=== PATIENT | male | born 1940 | race Caucasian/White ===

== ENCOUNTER 2016-12-22 08:21 | Inpatient (IN) | payer OTHER, MEDICARE ==
[~2016-12-22] VITALS: Ht 172.7 cm; Wt 73.7 kg
[~2016-12-22 08:21] MED LIST: ACYCLOVIR400 MG PO; ALEVE220 MG PO; AUGMENTIN875 MG PO; BACTRIM,SEPT1 TABLE1 PO; CALCIUM-MAGNES1 EA10 PO; CEFUROXIME500 MG PO; DOXAZOSIN MESYLA8 MG PO; GLIPIZIDE XL10 MG PO; IVIG INFUSION; LISINOPRIL20 MG PO; OCUVITE TABLET1 EACH PO; PRAVASTATIN SOD20 MG PO; VELCADE1 MG/ML IM; WARFARIN SODIUM5 MG PO; [UNRECOGNIZED DRUG - OTHER]
[2016-12-22 09:25] LABS: HEMATOCRIT 28.3 % (38.0-50.0); MCH 34.6 PG (29.0-34.0); MCHC 34.3 G/DL (30.0-36.0); MCV 101.1 FL (86-99); WHITE BLOOD COUNT 3.8 K/uL (4.1-10.2)
[2016-12-22 09:41] LABS: INTER. NORMALIZED RATIO 1.7; PROTHROMBIN TIME 18.1 (9.2-11.2); PTT 39.2 (25-32)
[2016-12-22 09:43] LABS: CHLORIDE 111 mEq/L (99-109); POTASSIUM 4.4 mEq/L (3.7-5.4); SODIUM 138 mEq/L (136-147)
[2016-12-22 09:45] LABS: TROP-I INTERPRETATION NEGATIVE; TROPONIN-I 0.05 ng/mL (0.0-0.30)
[2016-12-22 09:46] LABS: GLUCOSE 184 mg/dL (70-99)
[2016-12-22 09:47] LABS: ANION GAP 8 MEQ/L (2-14)
[2016-12-22 09:48] LABS: TOTAL BILIRUBIN 0.7 mg/dL (0.0-1.0)
[2016-12-22 09:49] LABS: ALKALINE PHOSPHATASE 53 IU/L (3-129); GFR ESTIMATE (CALCULATED) 39 mL/min/
[2016-12-22 09:51] LABS: UREA NITROGEN (BUN) 46 mg/dL (9-23)
[2016-12-22 10:35] LABS: ATYPICAL LYMPHOCYTE 3.6 %; BAND NEUTROPHILS 9.1 % (0-8.0); EOSINOPHIL ABS CT 0; IMM.PLATELET FRACTION 3.2 (1-7); INSTRUMENT ABS NEUTROPHIL CT 1.5 K/uL; LYMPHOCYTES 6.4 % (15.0-45.0); MEAN PLAT.VOLUME 12.2 uM^3 (9.0-12.4); METAMYELOCYTES 1.8 %; MYELOCYTES 0.9 %; PLAT.SUFFICIENCY DECREASED; SEG.NEUTROPHILS 69.1 % (46.0-76.0); SMUDGE CELLS 5.5
[2016-12-22 10:41] LABS: PLATELET COUNT 45 K/uL (156-360)
[2016-12-22] MEDS ORDERED: WARFARIN SODIUM1 MG PO (12:00)
[2016-12-22] MEDS ORDERED: HUMULIN R100 UNITS/ SC (12:02)
[2016-12-22] MEDS ORDERED: DECADRON4 MG PO (12:03)
[2016-12-22] MEDS ORDERED: KYPROLIS30 MG IV (12:05)
[2016-12-22] MEDS ORDERED: POMALYST4 MG PO (12:07)
[2016-12-22] MEDS ORDERED: VITAMIN D31000 UNI2 PO (12:09)
[2016-12-22 13:42] LABS: ADD MIUA? YES; BILIRUBIN NEGATIVE; BLOOD NEGATIVE; COLOR YELLOW ((YELLOW)); GLUCOSE (STRIP) 50; KETONES NEGATIVE; LEUKOCYTES NEGATIVE; NITRITE NEGATIVE; PROTEIN (STRIP) >=500; SPECIFIC GRAVITY 1.019 (1.000-1.030); UROBILINOGEN 0.2 MG/DL (0.2-1.0)
[2016-12-22 14:04] LABS: UCUL ADDED? NO
[2016-12-22 14:06] LABS: BACTERIA NONE SEEN /HPF; EPITHELIAL CELLS RARE /HPF; MUCUS TRACE /LPF; RED BLOOD CELLS 0-5 /HPF (0-5); WHITE BLOOD CELLS NONE SEEN /HPF (0-5)
[2016-12-22 15:30] VITALS: BP 157/75
[2016-12-22 16:02] LABS: INFLUENZA A VIRAL ANTIGEN NEGATIVE; INFLUENZA B VIRAL ANTIGEN NEGATIVE
[2016-12-22 23:29] VITALS: BP 155/72
[2016-12-23 06:40] LABS: HEMATOCRIT 28.1 % (38.0-50.0); MCH 34.3 PG (29.0-34.0); MCHC 33.5 G/DL (30.0-36.0); MCV 102.6 FL (86-99); RBC DIS.WIDTH-CV 14.2 % (11.8-14.6); RBC DIS.WIDTH-SD 53.4 % (39-53); RED BLOOD COUNT 2.74 M/uL (4.00-5.50); WHITE BLOOD COUNT 3.8 K/uL (4.1-10.2)
[2016-12-23 06:44] LABS: POINT-OF-CARE METER ID UU13113725
[2016-12-23 07:03] LABS: INTER. NORMALIZED RATIO 1.7; PROTHROMBIN TIME 17.4 (9.2-11.2)
[2016-12-23 07:04] VITALS: BP 185/76
[2016-12-23 07:22] LABS: ALKALINE PHOSPHATASE 45 IU/L (3-129); ANION GAP 9 MEQ/L (2-14); CHLORIDE 116 MEQ/L (99-109); GFR ESTIMATE (CALCULATED) > 59 mL/min/; SAMPLE HEMOLYSIS CHECK 0; SAMPLE ICTERIC CHECK 0; SAMPLE LIPEMIA CHECK 0; SODIUM 142 MEQ/L (136-147); TOTAL BILIRUBIN 0.9 MG/DL (0.0-1.0); UREA NITROGEN (BUN) 30 mg/dL (9-23)
[2016-12-23 07:24] LABS: GLUCOSE 114 mg/dL (70-99)
[2016-12-23 09:19] LABS: IMM.PLATELET FRACTION 3.9 (1-7); MEAN PLAT.VOLUME 11.6 uM^3 (9.0-12.4); PLATELET COUNT 36 K/uL (156-360)
[2016-12-23 10:34] LABS: POINT-OF-CARE METER ID UU13113725
[2016-12-23 15:09] VITALS: BP 190/84
[2016-12-23 16:51] LABS: POINT-OF-CARE METER ID UU13113725
[2016-12-23 20:04] VITALS: BP 170/78
[2016-12-24 06:46] LABS: HEMATOCRIT 31.7 % (38.0-50.0); MCH 34.1 PG (29.0-34.0); MCHC 33.4 G/DL (30.0-36.0); MCV 101.9 FL (86-99); RBC DIS.WIDTH-CV 13.7 % (11.8-14.6); RBC DIS.WIDTH-SD 51.9 % (39-53); RED BLOOD COUNT 3.11 M/uL (4.00-5.50); WHITE BLOOD COUNT 3.4 K/uL (4.1-10.2)
[2016-12-24 06:57] LABS: INTER. NORMALIZED RATIO 1.5; PROTHROMBIN TIME 15.7 (9.2-11.2)
[2016-12-24 07:17] LABS: ALKALINE PHOSPHATASE 51 IU/L (3-129); ANION GAP 9 MEQ/L (2-14); CHLORIDE 111 MEQ/L (99-109); GFR ESTIMATE (CALCULATED) > 59 mL/min/; POTASSIUM 4.1 MEQ/L (3.7-5.4); SAMPLE HEMOLYSIS CHECK 0; SAMPLE ICTERIC CHECK 0; SAMPLE LIPEMIA CHECK 0; SODIUM 139 MEQ/L (136-147); UREA NITROGEN (BUN) 25 mg/dL (9-23)
[2016-12-24 07:28] LABS: PLATELET COUNT 35 K/uL (156-360)
[2016-12-24 07:28] LABS: GLUCOSE 222 mg/dL (70-99)
[2016-12-24 07:50] VITALS: BP 212/84
[2016-12-24 09:54] VITALS: BP 190/82
[2016-12-24 11:25] VITALS: BP 162/74
[2016-12-24 16:49] VITALS: BP 158/78
[2016-12-24 16:50] LABS: D-DIMER ELISA 0.43 mg/L FEU (< 0.57)
[2016-12-24 23:41] VITALS: BP 168/75
[2016-12-25 06:40] LABS: INTER. NORMALIZED RATIO 1.5; PROTHROMBIN TIME 15.8 (9.2-11.2)
[2016-12-25 07:36] VITALS: BP 180/78
[2016-12-25 11:45] LABS: POINT-OF-CARE METER ID UU13113725
[2016-12-25 15:46] VITALS: BP 197/82
[2016-12-25 23:12] VITALS: BP 162/84
[2016-12-26] MEDS ORDERED: GLIPIZIDE10 MG PO (06:23)
[2016-12-26] MEDS ORDERED: AMLODIPINE BESYL5 MG PO (06:27)
[2016-12-26 07:02] LABS: INTER. NORMALIZED RATIO 1.5; PROTHROMBIN TIME 15.1 (9.2-11.2)
[2016-12-26 07:37] VITALS: BP 180/76
[2016-12-27 08:24] LABS: POINT-OF-CARE METER ID UU13113725
== END 2016-12-26 11:10 | disposition home or self-care (01) | DRG 864 ==
LOC: EME 08:21 → 5EAST 12:00 → EDOF 12:00 → 5EAST 15:12
PROVIDERS: Emergency Medicine; Internal Medicine; Internal Medicine Hematology & Oncology
DX: R50.9 Fever, unspecified (principal); C90.00 Multiple myeloma not having achieved remission; Y92.002 Bathroom of unspecified non-institutional (private) residence as the place of occurrence of the external cause; T45.1X5A Adverse effect of antineoplastic and immunosuppressive drugs, initial encounter; W19.XXXA Unspecified fall, initial encounter; I10 Essential (primary) hypertension; E11.9 Type 2 diabetes mellitus without complications; E78.5 Hyperlipidemia, unspecified; N28.9 Disorder of kidney and ureter, unspecified; R06.00 Dyspnea, unspecified; R05 Cough; Z86.718 Personal history of other venous thrombosis and embolism; Z79.01 Long term (current) use of anticoagulants; R53.1 Weakness; Y99.9 Unspecified external cause status
CPT/HCPCS: 36415; 70450; 71010; 71020; 78582; 80048; 80053; 81003; 82948; 83605; 84484; 85025; 85027; 85379; 85610; 85730; 87040; 87086; 87502; 93306; 94640; 94640 76; 94799; 99202; 99281; 99285; A9540; A9567; J0696; J1815; J2543; J2930; J7030; J7050; J7120; J7512

== ENCOUNTER → 2017-01-22 | Outpatient (CLI) | payer OTHER, MEDICARE ==
[~2017-01-22] MED LIST changes: +AMLODIPINE BESYL5 MG PO; +DECADRON4 MG PO; +GLIPIZIDE10 MG PO; +HUMULIN R100 UNITS/ SC; +KYPROLIS30 MG IV; +POMALYST4 MG PO; +VITAMIN D31000 UNI2 PO; +WARFARIN SODIUM1 MG PO
[2017-01-22 16:36] LABS: APPEARANCE CLEAR/COLORLESS; RED CELL AREA COUNTED 18; RED CELL COUNT 2 /MM^3 (0-1); RED CELL DILUTION 1; WBC AREA COUNTED 18; WBC DILUTION 1; WHITE CELL COUNT 2 /MM^3 (0-5); WHITE CELL RAW COUNT 4
[2017-01-22 16:37] LABS: CSF EOSINOPHILS 0 % (0-25); MONO RAW COUNT 4; MONONUCLEAR WBC'S 100 % (50-90); POLYNUCLEAR WBC'S 0 % (0-3)
[2017-01-22 17:01] LABS: CSF LDH 27 IU/L
== END | disposition home or self-care (01) ==
LOC: RAD 14:20
PROVIDERS: Internal Medicine Hematology & Oncology
PROC: 009U3ZZ Drainage of Spinal Canal, Percutaneous Approach (ICD-10-PCS; principal; 2017-01-22)
DX: C90.02 Multiple myeloma in relapse (principal); R42 Dizziness and giddiness
CPT/HCPCS: 62270; 77003; 82945; 83615 91; 84157; 87070; 87102; 87205; 89051

== ENCOUNTER 2017-05-09 08:53 | Emergency (ER) | payer OTHER, MEDICARE ==
[~2017-05-09] VITALS: Ht 172.7 cm; Wt 70.6 kg
[2017-05-09 09:54] LABS: CHLORIDE 103 mEq/L (99-109)
[2017-05-09 09:59] LABS: TOTAL BILIRUBIN 1.3 mg/dL (0.0-1.0)
[2017-05-09 10:00] LABS: SODIUM 135 mEq/L (136-147)
[2017-05-09 10:05] LABS: HEMATOCRIT 29.1 % (38.0-50.0); MCH 32.1 PG (29.0-34.0); MCHC 33.3 G/DL (30.0-36.0); MCV 96.4 FL (86-99); RBC DIS.WIDTH-SD 55.8 % (39-53); RED BLOOD COUNT 3.02 M/uL (4.00-5.50); WHITE BLOOD COUNT 3.4 K/uL (4.1-10.2)
[2017-05-09 10:06] LABS: GLUCOSE 188 mg/dL (70-99)
[2017-05-09 10:07] LABS: ANION GAP 8 MEQ/L (2-14)
[2017-05-09 10:09] LABS: TROP-I INTERPRETATION NEGATIVE; TROPONIN-I 0.01 ng/mL (0.0-0.30)
[2017-05-09 10:10] LABS: ALKALINE PHOSPHATASE 72 IU/L (3-129); GFR ESTIMATE (CALCULATED) > 59 mL/min/
[2017-05-09 10:11] LABS: UREA NITROGEN (BUN) 17 mg/dL (9-23)
[2017-05-09 10:13] LABS: LIPASE 31 U/L (1.0-51.0)
[2017-05-09 10:35] LABS: EOSINOPHIL (%) 1.2 % (0-5); INSTRUMENT ABS NEUTROPHIL CT 2.7 K/uL; LYMPHOCYTE COUNT 0.2 K/uL (1.0-2.8); MONOCYTE (%) 12.7 % (3-12); MONOCYTE COUNT 0.4 K/uL (0-0.8); NEUTROPHIL COUNT 2.7 K/uL (1.8-6.4)
[2017-05-09 10:43] LABS: IMM.PLATELET FRACTION 8.6 (1-7); PLAT.SUFFICIENCY DECREASED; PLATELET COUNT 40 K/uL (156-360)
[2017-05-09 13:19] LABS: ADD MIUA? NO; BILIRUBIN NEGATIVE; BLOOD NEGATIVE; COLOR YELLOW ((YELLOW)); GLUCOSE (STRIP) 50; KETONES NEGATIVE; LEUKOCYTES NEGATIVE; NITRITE NEGATIVE; PROTEIN (STRIP) 30; SPECIFIC GRAVITY 1.012 (1.000-1.030); UCUL ADDED? NO; UROBILINOGEN 0.2 MG/DL (0.2-1.0)
[2017-05-09 14:41] VITALS: BP 139/55
== END 2017-05-09 14:44 | disposition home or self-care (01) ==
LOC: EME 08:53
PROVIDERS: Emergency Medicine
DX: R50.9 Fever, unspecified (principal); B34.9 Viral infection, unspecified; D61.818 Other pancytopenia; C90.00 Multiple myeloma not having achieved remission; I10 Essential (primary) hypertension; E78.5 Hyperlipidemia, unspecified; E11.9 Type 2 diabetes mellitus without complications; Z79.4 Long term (current) use of insulin; Z86.718 Personal history of other venous thrombosis and embolism; Z87.891 Personal history of nicotine dependence
CPT/HCPCS: 71010; 80053; 81003; 83605; 83690; 84484; 85025; 87040; 99281; 99285

== ENCOUNTER 2018-04-17 11:39 | Observation (INO) | payer OTHER, MEDICARE ==
[~2018-04-17] VITALS: Ht 172.7 cm; Wt 73.2 kg
[2018-04-17 12:52] LABS: BASOPHIL (%) 0.3 % (0-1); EOSINOPHIL (%) 1.3 % (0-5); HEMATOCRIT 29.2 % (38.0-50.0); HEMOGLOBIN 9.9 G/DL (12.5-16.6); IMMATURE GRANULOCYTE (%) 2.3 % (0.0-0.7); LYMPHOCYTE (%) 16.1 % (15-42); LYMPHOCYTE COUNT 0.5 K/uL (1.0-2.8); MCHC 33.9 G/DL (30.0-36.0); MCV 97.3 FL (86-99); MONOCYTE (%) 13.1 % (3-12); MONOCYTE COUNT 0.4 K/uL (0-0.8); NEUTROPHIL (%) 66.9 % (45-76); PLATELET COUNT 93 K/uL (156-360); RBC DIS.WIDTH-CV 15.5 % (11.8-14.6); RBC DIS.WIDTH-SD 55.1 % (39-53)
[2018-04-17 12:57] LABS: INTER. NORMALIZED RATIO 3.6
[2018-04-17 12:59] LABS: ALBUMIN 3.4 g/dL (3.2-4.8)
[2018-04-17 13:00] LABS: CHLORIDE 111 mEq/L (99-109); POTASSIUM 3.9 mEq/L (3.7-5.4); SODIUM 144 mEq/L (136-147)
[2018-04-17 13:02] LABS: GLUCOSE 128 mg/dL (70-99); TOTAL PROTEIN 5.4 g/dL (6.4-8.3)
[2018-04-17 13:04] LABS: TOTAL BILIRUBIN 0.6 mg/dL (0.0-1.0)
[2018-04-17 13:05] LABS: ALKALINE PHOSPHATASE 75 IU/L (3-129)
[2018-04-17 13:06] LABS: CREATININE 1.2 mg/dL (0.6-1.3); GFR ESTIMATE (CALCULATED) > 59 mL/min/ (58.99-99999)
[2018-04-17 13:07] LABS: AST (GOT) 25 IU/L (2-34); UREA NITROGEN (BUN) 24 mg/dL (9-23)
[2018-04-17 13:08] LABS: ALT (GPT) 41 IU/L (3-49)
[2018-04-17 13:11] LABS: TROP-I INTERPRETATION NEGATIVE; TROPONIN-I < 0.01 ng/mL (0.0-0.30)
[2018-04-17] MEDS ORDERED: DECADRON4 M1 PO (14:32)
[2018-04-17] MEDS ORDERED: COUMADIN5 MG PO (14:32)
[2018-04-17] MEDS ORDERED: GLUCOTROL XL10 MG PO (14:34)
[2018-04-17 18:00] VITALS: BP 130/73
[2018-04-17 18:27] LABS: TROP-I INTERPRETATION NEGATIVE; TROPONIN-I < 0.01 ng/mL (0.0-0.30)
[2018-04-17 19:15] VITALS: BP 167/72
[2018-04-18] VITALS (9 sets, daily range): BP systolic 122–183; BP diastolic 58–98
[2018-04-18 01:03] LABS: TROP-I INTERPRETATION NEGATIVE; TROPONIN-I < 0.01 ng/mL (0.0-0.30)
[2018-04-18 05:42] LABS: HEMATOCRIT 29.6 % (38.0-50.0); HEMOGLOBIN 9.9 G/DL (12.5-16.6); MCH 32.1 PG (29.0-34.0); MCHC 33.4 G/DL (30.0-36.0); MCV 96.1 FL (86-99); PLATELET COUNT 94 K/uL (156-360); RBC DIS.WIDTH-CV 15.5 % (11.8-14.6); RED BLOOD COUNT 3.08 M/uL (4.00-5.50); WHITE BLOOD COUNT 3.4 K/uL (4.1-10.2)
[2018-04-18 06:10] LABS: CHLORIDE 109 MEQ/L (99-109); CREATININE 1.2 MG/DL (0.6-1.3); GFR ESTIMATE (CALCULATED) > 59 mL/min/ (58.99-99999); POTASSIUM 4.4 MEQ/L (3.7-5.4); SODIUM 141 MEQ/L (136-147); UREA NITROGEN (BUN) 19 mg/dL (9-23)
[2018-04-18 06:14] LABS: GLUCOSE 74 mg/dL (70-99)
[2018-04-19 04:00] VITALS: BP 124/60
[2018-04-19 05:47] LABS: BASOPHIL (%) 0.5 % (0-1); EOSINOPHIL (%) 3.5 % (0-5); EOSINOPHIL COUNT 0.1 K/uL (0-0.3); HEMATOCRIT 30.6 % (38.0-50.0); HEMOGLOBIN 10.2 G/DL (12.5-16.6); IMMATURE GRANULOCYTE (%) 0.3 % (0.0-0.7); LYMPHOCYTE (%) 27.8 % (15-42); MCH 31.7 PG (29.0-34.0); MCHC 33.3 G/DL (30.0-36.0); MONOCYTE (%) 16.3 % (3-12); MONOCYTE COUNT 0.6 K/uL (0-0.8); NEUTROPHIL (%) 51.6 % (45-76); NEUTROPHIL COUNT 1.9 K/uL (1.8-6.4); PLATELET COUNT 114 K/uL (156-360); RBC DIS.WIDTH-CV 15.2 % (11.8-14.6); RBC DIS.WIDTH-SD 53.5 % (39-53); RED BLOOD COUNT 3.22 M/uL (4.00-5.50); WHITE BLOOD COUNT 3.7 K/uL (4.1-10.2)
[2018-04-19 06:16] LABS: ALBUMIN 3.5 G/DL (3.2-4.8); ALKALINE PHOSPHATASE 68 IU/L (3-129); ALT (GPT) 25 IU/L (3-49); AST (GOT) 15 IU/L (2-34); CHLORIDE 107 MEQ/L (99-109); CREATININE 1.2 MG/DL (0.6-1.3); GFR ESTIMATE (CALCULATED) > 59 mL/min/ (58.99-99999); GLUCOSE 87 mg/dL (70-99); POTASSIUM 4.1 MEQ/L (3.7-5.4); SODIUM 140 MEQ/L (136-147); TOTAL BILIRUBIN 0.6 MG/DL (0.0-1.0); TOTAL PROTEIN 4.9 G/DL (6.4-8.3); UREA NITROGEN (BUN) 24 mg/dL (9-23)
[2018-04-19 08:55] VITALS: BP 164/75
[2018-04-19 12:23] VITALS: BP 170/78
[2018-04-19] MEDS ORDERED: AMLODIPINE BESY10 MG PO (12:36)
== END 2018-04-19 13:35 | disposition home or self-care (01) ==
LOC: EME 11:39 → 4SOUTH 15:12 → EDOF 15:12 → ENRESERV 15:18 → 4SOUTH 17:20
PROVIDERS: Emergency Medicine; Hospitalist; Internal Medicine; Physician Assistant
DX: R07.9 Chest pain, unspecified (principal); C90.00 Multiple myeloma not having achieved remission; D61.818 Other pancytopenia; E11.9 Type 2 diabetes mellitus without complications; I10 Essential (primary) hypertension; E78.5 Hyperlipidemia, unspecified; N40.0 Benign prostatic hyperplasia without lower urinary tract symptoms; Z79.01 Long term (current) use of anticoagulants; Z86.718 Personal history of other venous thrombosis and embolism; I27.20 Pulmonary hypertension, unspecified; Z94.84 Stem cells transplant status; Z87.891 Personal history of nicotine dependence; Z88.8 Allergy status to other drugs, medicaments and biological substances; Z79.84 Long term (current) use of oral hypoglycemic drugs; Z79.899 Other long term (current) drug therapy
CPT/HCPCS: 71045; 80048; 80053; 82948; 84484; 85025; 85027; 85610; 93005; 99281; 99285; G0378; J1815